=== PATIENT | female | born 1990 | race Hispanic/Latino ===

== ENCOUNTER 2023-03-31 18:00 | Inpatient (IN) | payer MEDICAID, OTHER, SELFPAY ==
[2023-03-31 19:36] VITALS: BMI 31.2
[2023-03-31] MEDS ORDERED: Calcium Gluc 4.6 MEQ/10 ML (100 MG/ML) SLOW IVP PRN (20:10)
[2023-03-31] MEDS ORDERED: Ondansetron PF 4 MG/2 ML Vial IVP PRN (20:10)
[2023-03-31] MEDS ORDERED: Lorazepam 2 MG/ML VIAL SLOW IVP PRN (20:10)
[2023-03-31] MEDS ORDERED: hydrALAZINE 20 MG/ML VIAL SLOW IVP PRN ×4 (20:10→20:12)
[2023-03-31] MEDS ORDERED: Lidocaine 1% (PF) 30 ML VIAL SC PRN (20:10)
[2023-03-31] MEDS ORDERED: Promethazine HCl 25 MG/ML VIAL IM PRN (20:10)
[2023-03-31] MEDS ORDERED: Carboprost 250 MCG/ML AMP IM PRN (20:12)
[2023-03-31] MEDS ORDERED: Ibuprofen 800 MG TAB PO PRN (20:12)
[2023-03-31] MEDS ORDERED: Misoprostol 200 MCG TAB PR PRN (20:12)
[2023-03-31] MEDS ORDERED: Tranexamic Acid 1,000 MG/10 ML VIAL IVP PRN (20:12)
[2023-03-31] MEDS ORDERED: Labetalol HCl 100 MG/20 ML VIAL SLOW IVP PRN ×2 (20:12)
[2023-03-31] MEDS ORDERED: metFORMIN 500 MG TAB PO SCH (21:15)
[2023-03-31] MEDS ORDERED: Misoprostol 100 MCG TAB VAG SCH (21:15)
[2023-03-31 21:25] LABS: Hematocrit 34.6 % (34.9-44.5); Hemoglobin 11.7 g/dL (12.0-15.5); Mean Corpuscular HGB CONC 33.8 g/dL (32.0-36.0); Mean Corpuscular Hemoglobin 26.5 pg (27.0-33.0); Mean Corpuscular Volume 78.3 fl (81.6-98.3); Mean Platelet Volume 9.7 fl (7.4-10.4); Platelet Count 310 10x3/uL (150-450); RBC Distribution Width 13.5 % (11.5-14.5); Red Blood Cell (RBC) Count 4.42 10x6/uL (3.90-5.03); White Blood Cell (WBC) Count 9.1 10x3/uL (3.5-10.5)
[2023-03-31] MEDS: Labetalol HCl 100 MG TAB PO SCH (21:27)
[2023-03-31 21:30] LABS: ALT (SGPT) 15 U/L (8-55); AST (SGOT) 28 U/L (5-34); Albumin 3.2 g/dL (3.5-5.0); Alkaline Phosphatase 244 U/L (40-110); Anion Gap 16 mmol/L (10-20); BUN (Urea Nitrogen) 6 mg/dL (7.0-18.7); Bilirubin, Total 0.5 mg/dL (0.2-1.2); Calc. Creatinine Clearance 149 mL/min (70-130); Calcium 8.5 mg/dL (7.8-10.44); Carbon Dioxide 15 mmol/L (22-29); Chloride 108 mmol/L (98-107); Estimated GFR 121; Globulin 3.1 g/dL (2.4-3.5); Glucose 100 mg/dL (70-105); Potassium 3.8 mmol/L (3.5-5.1); Protein, Total 6.3 g/dL (6.0-8.3); Sodium 135 mmol/L (136-145)
[2023-03-31 23:31] LABS: HBSAg Index 0.16 S/CO (0-0.99); Hep B Surf Ag - L&D Non-Reactive S/CO (NonReactive)
[2023-03-31 23:32] LABS: Syphilis Antibody Nonreactive (Nonreactive); Syphilis Antibody Index 0.02 S/CO (<1.00 Non-Reactive)
[2023-04-01] MEDS ORDERED: Misoprostol 100 MCG TAB VAG SCH (00:45)
[2023-04-01] MEDS: Acetaminophen 325 MG TAB PO PRN ×2 (04:56→20:15)
[2023-04-01] MEDS ORDERED: metFORMIN 500 MG TAB PO SCH (08:00)
[2023-04-01] MEDS: Labetalol HCl 100 MG TAB PO SCH ×3 (08:41→20:14)
[2023-04-01] MEDS ORDERED: fentaNYL/Ropivacaine Epidural 100 ML ONE (08:58)
[2023-04-01] MEDS ORDERED: valACYclovir 500 MG TAB PO SCH (09:00)
[2023-04-01] MEDS ORDERED: Prenatal Vitamin 1 TAB PO SCH (09:00)
[2023-04-01] MEDS ORDERED: Naloxone HCl 0.4 mg/ml Vial IVP PRN ×2 (10:15)
[2023-04-01] MEDS ORDERED: diphenhydrAMINE 50 MG/ML VIAL IVP PRN (10:15)
[2023-04-01] MEDS ORDERED: Promethazine HCl 25 MG/ML VIAL IM PRN (10:15)
[2023-04-01] MEDS ORDERED: Communication Order-Pharmacy FS SCH (10:15)
[2023-04-01] MEDS ORDERED: Lactated Ringer's 500 ML IV PRN (10:15)
[2023-04-01] MEDS ORDERED: Ondansetron PF 4 MG/2 ML Vial IVP PRN (10:15)
[2023-04-01] MEDS ORDERED: Moisturizing Cream (Eucerin) 113 GM JAR TOP PRN (10:15)
[2023-04-01] MEDS ORDERED: ePHEDrine Sulfate 50 MG/10 ML VIAL SLOW IVP PRN (10:15)
[2023-04-01] MEDS ORDERED: fentaNYL 2 mcg/Ropivacaine 0.2% Epidural 100 ML CADD EPIDURAL SCH (10:15)
[2023-04-01] MEDS ORDERED: Oxytocin 30 units/NS 500 ML 500 ML IV SCH (12:30)
[2023-04-01] MEDS: Oxytocin 30 units/NS 500 ML 500 ML IV SCH (12:44)
[2023-04-01] MEDS ORDERED: Bupivacaine 0.25% HCL 30 ML VIAL ONE (19:32)
[2023-04-02] MEDS: Oxytocin 30 units/NS 500 ML 500 ML IV SCH (00:06)
[2023-04-02] MEDS ORDERED: Boostrix 0.5 ML (Tdap) VIAL (>/=7 yrs of age) IM ONE (01:27)
[2023-04-02] MEDS ORDERED: hydrALAZINE 20 MG/ML VIAL SLOW IVP PRN (01:27)
[2023-04-02] MEDS ORDERED: Milk Of Magnesia 30 ML UDCUP PO PRN (01:27)
[2023-04-02] MEDS ORDERED: Lanolin Ointment 7 GM TUBE TOP PRN (01:27)
[2023-04-02] MEDS ORDERED: diphenhydrAMINE 25 MG CAP PO PRN (01:27)
[2023-04-02] MEDS ORDERED: Bisacodyl 10 MG SUPP PR PRN (01:27)
[2023-04-02] MEDS ORDERED: Labetalol HCl 100 MG TAB PO SCH ×2 (01:45→21:00)
[2023-04-02] MEDS: Ibuprofen 200 MG TAB PO PRN ×2 (06:45→16:12)
[2023-04-02] MEDS: Ferrous Sulfate 325 MG TAB PO SCH ×2 (08:44→16:12)
[2023-04-02] MEDS: Labetalol HCl 100 MG TAB PO SCH ×2 (08:45→15:59)
[2023-04-02] MEDS: Docusate 100 MG CAP PO SCH ×2 (08:45→21:07)
[2023-04-02] MEDS: Acetaminophen 325 MG TAB PO PRN ×3 (08:45→21:08)
[2023-04-02] MEDS: Prenatal Vitamin 1 TAB PO SCH (08:45)
[2023-04-03] MEDS: Ibuprofen 200 MG TAB PO PRN (02:18)
[2023-04-03] MEDS: Docusate 100 MG CAP PO SCH (08:27)
[2023-04-03] MEDS: Prenatal Vitamin 1 TAB PO SCH (08:27)
[2023-04-03] MEDS: Ferrous Sulfate 325 MG TAB PO SCH (09:08)
[2023-04-03 11:58] VITALS: BP 123/72; TEMP 98.1
== END 2023-04-03 15:40 | disposition home or self-care (01) | DRG 806 ==
LOC: CSHLD 19:08 → CSHPP 04-02 02:00
PROVIDERS: ADMIT Emergency Medicine; ATTEND Emergency Medicine
PROC: 10E0XZZ Delivery of Products of Conception, External Approach (ICD-10-PCS; principal; 2023-04-01)
PROC: 10H07YZ Insertion of Other Device into Products of Conception, Via Natural or Artificial Opening (ICD-10-PCS; 2023-04-01)
DX: O14.04 Mild to moderate pre-eclampsia, complicating childbirth (principal); O98.52 Other viral diseases complicating childbirth; Z37.0 Single live birth; Z3A.37 37 weeks gestation of pregnancy; O24.425 Gestational diabetes mellitus in childbirth, controlled by oral hypoglycemic drugs; Z79.84 Long term (current) use of oral hypoglycemic drugs; Z79.899 Other long term (current) drug therapy; Z88.1 Allergy status to other antibiotic agents; A60.00 Herpesviral infection of urogenital system, unspecified
CPT/HCPCS: 36415; 36416; 51702; 80053; 85027; 86780; 86850; 86900; 86901; 87340; J2405; J2590; S0020